=== PATIENT | male | born 1965 | race Caucasian/White ===

== ENCOUNTER 2019-11-30 20:49 | Emergency (ER) | payer SELFPAY ==
[2019-11-30] MEDS ORDERED: Diphtheria,Pertussis(Acell),Tetanus Vaccine 0.5 ML SDV IM ONE (21:05)
[2019-11-30] MEDS ORDERED: Lidocaine 1% 30 ML SDV INJECT ONE (21:05)
[2019-11-30] MEDS ORDERED: Bacitracin Oint 1 GM U/D Packet TOP ONE (21:05)
--- NOTE | 2019-11-30 21:06 | EDM.PDOC ---
ED HPI GENERAL MEDICAL PROBLEM - General Chief Complaint: Laceration Stated Complaint: CUT ON RIGHT ARM Time Seen by Provider: 11/30/19 21:05 Source of Information: Reports: Patient, RN, RN Notes Reviewed History Limitations: Reports: No Limitations - History of Present Illness INITIAL COMMENTS - FREE TEXT/NARRATIVE: patient to ER with complaint of laceration to the right wrist. patient reports drinking alcohol today, and being intoxicated. Patient states he walked outside to have a cigarette and lost his balance, falling through a window, cutting his right wrist. Patient states his sister brought him here. Patient is unsure of when his last tetanus vaccination was. Onset: Today, Sudden Right Wrist Pain Score (Numeric/FACES): 1 - Related Data Allergies Allergy/AdvReac Type Severity Reaction Status Date / Time No Known Allergies Allergy Verified 11/30/19 21:43 Home Meds: Home Meds Aspirin [Halfprin] 81 mg PO DAILY 09/23/16 [History] Lisinopril [Zestril] 20 mg PO DAILY 09/23/16 [History] Simvastatin [Zocor] 20 mg PO DAILY 09/23/16 [History] Sertraline HCl [Zoloft] 50 mg PO DAILY 05/09/19 [History] Past Medical History HEENT History: Reports: None Cardiovascular History: Reports: High Cholesterol, Hypertension, Other (See Below) Other Cardiovascular History: HYPERCHOLESTERMIA; DYSLIPIDEMIA Respiratory History: Reports: None Gastrointestinal History: Reports: Chronic Diarrhea, Hemorrhoids, Other (See Below) Other Gastrointestinal History: HEMATOCHEZIA Genitourinary History: Reports: Acute Renal Failure Musculoskeletal History: Reports: Gout Neurological History: Reports: Other (See Below) Other Neuro History: RADIAL NERVE PALSY Psychiatric History: Reports: Addiction, Mood Swings Other Psychiatric History: ALCOHOL HABITUATION. NICOTINE DEPENDENCE Endocrine/Metabolic History: Reports: Obesity/BMI 30+ Hematologic History: Reports: Anemia Immunologic History: Reports: None Oncologic (Cancer) History: Reports: None Dermatologic History: Reports: None - Infectious Disease History Infectious Disease History: Reports: Chicken Pox - Past Surgical History Head Surgeries/Procedures: Reports: None HEENT Surgical History: Reports: None Musculoskeletal Surgical History: Reports: None Social & Family History - Family History HEENT: Reports: None Cardiac: Reports: Stent Respiratory: Reports: None GI: Reports: None : Reports: None OBGYN: Reports: None Musculoskeletal: Reports: Gout Neurological: Reports: CVA Psychiatric: Reports: None Endocrine/Metabolic: Reports: Diabetes, type II Hematologic: Reports: None Immunologic: Reports: None Dermatologic: Reports: None Oncologic: Reports: None - Caffeine Use Caffeine Use: Reports: Soda ED ROS GENERAL - Review of Systems Review Of Systems: Comprehensive ROS is negative, except as noted in HPI. ED EXAM, SKIN/RASH Exam: See Below Exam Limited By: Intoxication General Appearance: Alert, WD/WN, No Apparent Distress Eye Exam: Bilateral Eye: EOMI, Normal Inspection Ears: Normal External Exam, Hearing Grossly Normal Nose: Nasal Deformity Throat/Mouth: Normal Inspection, Normal Voice, No Airway Compromise Head: Atraumatic, Normocephalic Neck: Normal Inspection, Supple, Non-Tender, Full Range of Motion Respiratory/Chest: No Respiratory Distress, Lungs Clear, Normal Breath Sounds, No Accessory Muscle Use, Chest Non-Tender Cardiovascular: Normal Peripheral Pulses, Regular Rate, Rhythm, No Edema, No Gallop, No JVD, No Murmur, No Rub Peripheral Pulses: 2+: Radial (L), Radial (R) GI/Abdominal: Normal Bowel Sounds, Soft, Non-Tender (Male) Exam: Deferred Rectal (Males) Exam: Deferred Back Exam: Normal Inspection, Full Range of Motion, NT Extremities: Normal Range of Motion, Arm Pain (Right wrist) Neurological: Alert, Oriented, Slow to Respond Psychiatric: Normal Affect, Normal Mood Skin: Warm, Dry, Other (2 lacerations to the right ventral distal wrist, one 4.5 cm, another 4.0 cm) Location, Skin: Upper Extremity, Right Characteristics: Linear Lymphatic: No Adenopathy ED SKIN PROCEDURES - Laceration/Wound Repair Right Distal Ventral Wrist Appearance: Subcutaneous Distal NVT: Neuro & Vascular Intact Anesthetic Type: Local Local Anesthesia - Lidocaine (Xylocaine): 1% Plain Local Anesthetic Volume: Other (10) Skin Prep: Chlorhexidine (Hibiciens) Exploration/Debridement/Repair: Wound Explored, In a Bloodless Field, Explored to Base, No Foreign Material Found Closed with: Sutures Lac/Wound length In cm: 4.5 Suture Size: 4-0 # of Sutures: 5 Suture Type: Nylon, Interrupted Drain Placement: No Sterile Dressing Applied: Nurse Tetanus Status Addressed: Yes Complications: No Right Wrist Appearance: Subcutaneous Anesthetic Type: Local Local Anesthesia - Lidocaine (Xylocaine): 1% Plain Local Anesthetic Volume: 5cc Skin Prep: Chlorhexidine (Hibiciens) Exploration/Debridement/Repair: Wound Explored, In a Bloodless Field, Explored to Base, No Foreign Material Found Closed with: Sutures Lac/Wound length In cm: 4.0 Suture Size: 4-0 # of Sutures: 5 Suture Type: Nylon, Interrupted Drain Placement: No Sterile Dressing Applied: Nurse Tetanus Status Addressed: Yes Complications: No Course - Vital Signs Last Recorded V/S: Last Vital Signs Temp 97.1 F 11/30/19 20:55 Pulse 87 11/30/19 20:55 Resp 19 11/30/19 20:55 BP 156/95 H 11/30/19 20:55 Pulse Ox 99 11/30/19 20:55 - Orders/Labs/Meds Orders: Active Orders 24 hr Category Date Time Status Vaccines to be Administered [RC] PER UNIT ROUTINE Care 11/30/19 21:05 Active Meds: Medications Discontinued Medications Generic Name Dose Route Start Last Admin Trade Name Zenobia PRN Reason Stop Dose Admin Bacitracin 1 dose 11/30/19 21:05 11/30/19 21:42 Bacitracin Oint 1 Gm TOP 11/30/19 21:06 1 dose ONETIME ONE Administration Diphtheria/Tetanus/Acell Pertussis 0.5 ml 11/30/19 21:05 11/30/19 21:14 Adacel IM 11/30/19 21:06 0.5 ml .ONCE ONE Administration Lidocaine HCl 30 ml 11/30/19 21:05 11/30/19 21:16 Xylocaine-Mpf 1% INJECT 11/30/19 21:06 30 ml ONETIME ONE Administration Departure - Departure Time of Disposition: 21:44 Disposition: Home, Self-Care 01 Condition: Fair Clinical Impression: Intoxication, Laceration - Discharge Information *PRESCRIPTION DRUG MONITORING PROGRAM REVIEWED*: No *COPY OF PRESCRIPTION DRUG MONITORING REPORT IN PATIENT MELO: No Instructions: Laceration Care, Adult, [id number], Stitches, Fenton, or Adhesive Wound Closure, [id number] Referrals: PCP,Unobtain [Primary Care Provider] - Forms: ED Department Discharge Additional Instructions: Follow up with your primary care facility for suture removal in 7-10 days Keep clean and dry You may shower, dab dry with towel Do not submerge in water for long period of time Keep covered with dry bandage to keep clean No need to use ointment after tonight Sepsis Event Note - Focused Exam Vital Signs: Vital Signs Temp Pulse Resp BP Pulse Ox 11/30/19 20:55 97.1 F 87 19 156/95 H 99 Date Exam was Performed: 11/30/19 Time Exam was Performed: 22:01 - My Orders Last 24 Hours: My Active Orders 11/30/19 21:05 Vaccines to be Administered [RC] PER UNIT ROUTINE - Assessment/Plan Last 24 Hours: My Active Orders 11/30/19 21:05 Vaccines to be Administered [RC] PER UNIT ROUTINE
[2019-11-30 21:29] VITALS: BP 156/95; PULSE 87
== END 2019-11-30 21:58 | disposition home or self-care (01) ==
LOC: DL.ED 20:49
DX: S61.511A Laceration without foreign body of right wrist, initial encounter (principal); F10.129 Alcohol abuse with intoxication, unspecified; Z23 Encounter for immunization; I10 Essential (primary) hypertension; E78.00 Pure hypercholesterolemia, unspecified; E66.9 Obesity, unspecified; Z68.29 Body mass index [BMI] 29.0-29.9, adult; Z79.82 Long term (current) use of aspirin; Z79.899 Other long term (current) drug therapy; F17.210 Nicotine dependence, cigarettes, uncomplicated; W19.XXXA Unspecified fall, initial encounter; W26.8XXA Contact with other sharp object(s), not elsewhere classified, initial encounter
CPT/HCPCS: 12004; 90471; 90715; 99283; J2001; 99282

== ENCOUNTER 2021-06-14 23:18 | Emergency (ER) | payer MEDICAID, OTHER ==
[2021-06-14 23:41] VITALS: BP 179/109; PULSE 92
[2021-06-14] MEDS ORDERED: Aspirin 81 MG Tab.Chew PO ONE (23:52)
--- NOTE | 2021-06-14 23:52 | EDM.PDOC ---
ED HPI GENERAL MEDICAL PROBLEM - General Chief Complaint: Cardiovascular Problem Stated Complaint: CHEST PAIN AND LEFT SIDE OF THE BODY Time Seen by Provider: 06/14/21 23:40 Source of Information: Reports: Patient History Limitations: Reports: Intoxication - History of Present Illness INITIAL COMMENTS - FREE TEXT/NARRATIVE: ED ambulatory with c/o left side chest pain, uncertain onset, poor historian, intoxicated, reports drank enough today to kill an elephant, person with reports frequent intox, unsure if daily drinker or if withdrawal hx. fresh open area left upper chest reports cigarette burn fell asleep in bed smoking. Left Chest Pain Score (Numeric/FACES): 1 - Related Data Allergies Allergy/AdvReac Type Severity Reaction Status Date / Time No Known Allergies Allergy Verified 06/14/21 23:39 Home Meds: Home Meds Aspirin [Halfprin] 81 mg PO DAILY 09/23/16 [History] Simvastatin [Zocor] 20 mg PO DAILY 09/23/16 [History] lisinopriL [Zestril] 20 mg PO DAILY 09/23/16 [History] Sertraline HCl [Zoloft] 50 mg PO DAILY 05/09/19 [History] Past Medical History HEENT History: Reports: None Cardiovascular History: Reports: High Cholesterol, Hypertension, Other (See Below) Other Cardiovascular History: HYPERCHOLESTERMIA; DYSLIPIDEMIA Respiratory History: Reports: None Gastrointestinal History: Reports: Chronic Diarrhea, Hemorrhoids, Other (See Below) Other Gastrointestinal History: HEMATOCHEZIA Genitourinary History: Reports: Acute Renal Failure Musculoskeletal History: Reports: Gout Neurological History: Reports: Other (See Below) Other Neuro History: RADIAL NERVE PALSY Psychiatric History: Reports: Addiction, Mood Swings Other Psychiatric History: ALCOHOL HABITUATION. NICOTINE DEPENDENCE Endocrine/Metabolic History: Reports: Obesity/BMI 30+ Hematologic History: Reports: Anemia Immunologic History: Reports: None Oncologic (Cancer) History: Reports: None Dermatologic History: Reports: None - Infectious Disease History Infectious Disease History: Reports: Chicken Pox - Past Surgical History Head Surgeries/Procedures: Reports: None HEENT Surgical History: Reports: None Musculoskeletal Surgical History: Reports: None Social & Family History - Family History HEENT: Reports: None Cardiac: Reports: Stent Respiratory: Reports: None GI: Reports: None : Reports: None OBGYN: Reports: None Musculoskeletal: Reports: Gout Neurological: Reports: CVA Psychiatric: Reports: None Endocrine/Metabolic: Reports: Diabetes, type II Hematologic: Reports: None Immunologic: Reports: None Dermatologic: Reports: None Oncologic: Reports: None - Tobacco Use Tobacco Use Status *Q: Current Every Day Tobacco User Years of Tobacco use: 35 Packs/Tins Daily: 1 - Caffeine Use Caffeine Use: Reports: Coffee - Recreational Drug Use Recreational Drug Use: No ED ROS GENERAL - Review of Systems Review Of Systems: Unable To Obtain Reason Not Obtained: intoxication ED EXAM, GENERAL - Physical Exam Exam: See Below Exam Limited By: Intoxication General Appearance: Alert, Mild Distress Eye Exam: Bilateral Eye: Conjunctival Injection, EOMI Ears: Normal External Exam Nose: Normal Inspection Throat/Mouth: Normal Inspection Head: Atraumatic, Normocephalic Neck: Normal Inspection Respiratory/Chest: No Respiratory Distress, Wheezing (coarse throughout improves with cough) Cardiovascular: Normal Peripheral Pulses, Regular Rate, Rhythm GI/Abdominal: Normal Bowel Sounds, Soft Neurological: Alert Psychiatric: Other (beligerent argumentative) Skin Exam: Warm, Dry, Intact #1 Interpretation EKG Date: 06/14/21 Time: 23:30 Rhythm: NSR Rate (Beats/Min): 91 [place]: Normal P-Wave: Present QRS: Normal ST-T: Normal Comparison: NA - No Prior EKG Course - Vital Signs Last Recorded V/S: Last Vital Signs Temp 98.9 F 06/14/21 23:40 Pulse 92 06/14/21 23:40 Resp 16 06/14/21 23:40 BP 179/109 H 06/14/21 23:40 Pulse Ox 97 06/14/21 23:40 - Orders/Labs/Meds Labs: Laboratory Tests 06/14/21 06/14/21 06/14/21 Range/Units 23:31 23:31 23:31 WBC 7.3 (5.0-10.0) 10^3/uL RBC 4.81 (4.6-6.2) 10^6/uL Hgb 16.3 D (14.0-18.0) g/dL Hct 47.5 (40.0-54.0) % MCV 98.8 D (80-100) fL MCH 33.9 (27.0-34.0) pg MCHC 34.3 (33.0-35.0) g/dL Plt Count 197 (150-450) 10^3/uL Neut % (Auto) 41.3 L (42.2-75.2) % Lymph % (Auto) 38.8 (20.5-50.1) % Iron % (Auto) 16.9 H (2-8) % Eos % (Auto) 2.6 (1.0-3.0) % Baso % (Auto) 0.4 (0.0-1.0) % D-Dimer, Quantitative 489 H (0-400) ng/mL Sodium 141 (136-145) mmol/L Potassium 3.8 (3.5-5.1) mmol/L Chloride 105 (98-107) mmol/L Carbon Dioxide 23 (21-32) mmol/L Anion Gap 16.8 H (7-13) mEq/L BUN 11 (7-18) mg/dL Creatinine 1.03 (0.70-1.30) mg/dL Est Cr Clr Drug Dosing 86.31 mL/min Estimated GFR (MDRD) > 60 BUN/Creatinine Ratio 10.7 (No establ ref range) Glucose 127 H (70-99) mg/dL Calcium 8.5 (8.5-10.1) mg/dL Total Bilirubin 0.2 (0.2-1.0) mg/dL AST 27 (15-37) U/L ALT 37 (16-63) U/L Alkaline Phosphatase 71 (46-116) U/L Troponin I High Sens 37 (<=76) pg/mL Total Protein 7.9 (6.4-8.2) g/dL Albumin 3.7 (3.4-5.0) g/dL Globulin 4.2 Albumin/Globulin Ratio 0.9 Amylase 139 H (25-115) U/L Lipase 354 (73-393) U/L Ethyl Alcohol 359 (0) mg/dL SARS-CoV-2 RNA (NENA) (NEGATIVE) 06/14/21 06/15/21 Range/Units 23:39 01:46 WBC (5.0-10.0) 10^3/uL RBC (4.6-6.2) 10^6/uL Hgb (14.0-18.0) g/dL Hct (40.0-54.0) % MCV (80-100) fL MCH (27.0-34.0) pg MCHC (33.0-35.0) g/dL Plt Count (150-450) 10^3/uL Neut % (Auto) (42.2-75.2) % Lymph % (Auto) (20.5-50.1) % Iron % (Auto) (2-8) % Eos % (Auto) (1.0-3.0) % Baso % (Auto) (0.0-1.0) % D-Dimer, Quantitative (0-400) ng/mL Sodium (136-145) mmol/L Potassium (3.5-5.1) mmol/L Chloride (98-107) mmol/L Carbon Dioxide (21-32) mmol/L Anion Gap (7-13) mEq/L BUN (7-18) mg/dL Creatinine (0.70-1.30) mg/dL Est Cr Clr Drug Dosing mL/min Estimated GFR (MDRD) BUN/Creatinine Ratio (No establ ref range) Glucose (70-99) mg/dL Calcium (8.5-10.1) mg/dL Total Bilirubin (0.2-1.0) mg/dL AST (15-37) U/L ALT (16-63) U/L Alkaline Phosphatase (46-116) U/L Troponin I High Sens 33 (<=76) pg/mL Total Protein (6.4-8.2) g/dL Albumin (3.4-5.0) g/dL Globulin Albumin/Globulin Ratio Amylase (25-115) U/L Lipase (73-393) U/L Ethyl Alcohol 298 (0) mg/dL SARS-CoV-2 RNA (NENA) Negative (NEGATIVE) Meds: Medications Discontinued Medications Generic Name Dose Route Start Last Admin Trade Name Ralfq PRN Reason Stop Dose Admin Aspirin 324 mg 06/14/21 23:52 06/15/21 00:00 Aspirin 81 Mg Tab.Chew PO 06/14/21 23:53 324 mg ONETIME ONE Administration Labetalol HCl 10 mg 06/14/21 23:59 06/15/21 00:08 Labetalol 20 Mg/4 Ml Syringe IVPUSH 06/15/21 00:00 10 mg ONETIME ONE Administration Labetalol HCl 10 mg 06/15/21 00:31 06/15/21 00:41 Labetalol 20 Mg/4 Ml Syringe IVPUSH 06/15/21 00:32 10 mg ONETIME ONE Administration - Re-Assessments/Exams Free Text/Narrative Re-Assessment/Exam: 06/15/21 05:53 BP improved with labetalol. Pain apears associated with movement left lateral chest. Departure - Departure Time of Disposition: 02:32 Disposition: Home, Self-Care 01 Condition: Good Clinical Impression: Alcohol intoxication Qualifiers: Complication of substance-induced condition: uncomplicated Qualified Code(s): F10.920 - Alcohol use, unspecified with intoxication, uncomplicated Hypertension Qualifiers: Hypertension type: unspecified Qualified Code(s): I10 - Essential (primary) hypertension Instructions: Alcohol Intoxication, [id number], Hypertension, Adult, [id number] Referrals: Bandar Ariza NP [Primary Care Provider] - Forms: ED Department Discharge Additional Instructions: abstain from alcohol consider counseling or addiction treatment follow up clinic this week to recheck blood pressure Sepsis Event Note (ED) - Evaluation Sepsis Screening Result: No Definite Risk - Focused Exam Vital Signs: Vital Signs Temp Pulse Resp BP Pulse Ox 06/14/21 23:40 98.9 F 92 16 179/109 H 97
[2021-06-14 23:59] LABS: ANION GAP 16.8 mEq/L (7-13); CHLORIDE,CL 105 mmol/L (98-107); SODIUM,NA 141 mmol/L (136-145)
[2021-06-14] MEDS ORDERED: Labetalol 20 MG/4 ML Syringe IVPUSH ONE (23:59)
[2021-06-15] MEDS ORDERED: Labetalol 20 MG/4 ML Syringe IVPUSH ONE (00:31)
--- NOTE | 2021-06-15 00:56 | CR ---
PROCEDURE INFORMATION: Exam: XR Chest Exam date and time: 06/15/2021 12:03 AM Age: 56 years old Clinical indication: Other: Chest pain TECHNIQUE: Imaging protocol: XR of the chest. Views: 1 view. COMPARISON: CR Chest 1V Frontal 05/09/2019 9:05 PM FINDINGS: Lungs: Unremarkable. No consolidation. Pleural spaces: Unremarkable. No pleural effusion. No pneumothorax. Heart/Mediastinum: Unremarkable. No cardiomegaly. Bones/joints: Unremarkable. IMPRESSION: No acute findings.
== END 2021-06-15 02:50 | disposition home or self-care (01) ==
LOC: DL.ED 23:18
DX: F10.129 Alcohol abuse with intoxication, unspecified (principal); I10 Essential (primary) hypertension; E78.00 Pure hypercholesterolemia, unspecified; E66.9 Obesity, unspecified; Z68.27 Body mass index [BMI] 27.0-27.9, adult; Z79.82 Long term (current) use of aspirin; Z79.899 Other long term (current) drug therapy; Z72.0 Tobacco use; Z20.822 Contact with and (suspected) exposure to COVID-19; Y90.8 Blood alcohol level of 240 mg/100 ml or more
CPT/HCPCS: 36415; 71045; 80053; 80307; 82150; 83690; 84484; 85025; 85379; 87635; 93005; 96374; 96376; 99285; A9270; J3490; U0002

== ENCOUNTER 2024-07-06 13:07 | Emergency (ER) | payer OTHER ==
[2024-07-06] MEDS: Acetaminophen/HYDROcodone 325-10 MG Tab PO ONE (13:45)
[2024-07-06] MEDS: predniSONE 20 MG Tab PO ONE (13:46)
[2024-07-06 13:54] LABS: BASOPHILS PERCENT AUTO 0.3 % (0.0-1.0); EOSINOPHILS PERCENT AUTO 1.9 % (1.0-3.0); HEMATOCRIT 46.1 % (40.0-54.0); HEMOGLOBIN 15.5 g/dL (14.0-18.0); LYMPHOCYTES PERCENT AUTO 16.5 % (20.5-50.1); MEAN CORPUSCULAR HEMOGLOBIN 34.1 pg (27.0-34.0); MEAN CORPUSCULAR HGB CONC 33.6 g/dL (33.0-35.0); MEAN CORPUSCULAR VOLUME 101.3 fL (80-100); MONOCYTES PERCENT AUTO 20.1 % (2-8); NEUTROPHILS PERCENT AUTO 61.2 % (42.2-75.2); PLATELET COUNT,PLT 204 10^3/uL (150-450); RED BLOOD CELL COUNT 4.55 10^6/uL (4.6-6.2)
[2024-07-06 14:04] VITALS: BP 180/107; PULSE 81
[2024-07-06 14:10] LABS: ANION GAP 15.1 mEq/L (7-13); C-REACTIVE PROTEIN 5.64 ng/dL (<=0.50); CALCIUM 9.3 mg/dL (8.5-10.1); CREATININE 1.17 mg/dL (0.70-1.30); EST CRCL DRUG DOSING (CG) 73.3 mL/min; POTASSIUM,K 4.1 mmol/L (3.5-5.1); URIC ACID 6.1 mg/dL (3.5-7.2)
== END 2024-07-06 14:30 | disposition home or self-care (01) ==
LOC: DL.ED 13:07
DX: M10.9 Gout, unspecified (principal); E78.00 Pure hypercholesterolemia, unspecified; I10 Essential (primary) hypertension; E66.9 Obesity, unspecified; Z68.26 Body mass index [BMI] 26.0-26.9, adult; F17.210 Nicotine dependence, cigarettes, uncomplicated; Z79.82 Long term (current) use of aspirin; Z79.899 Other long term (current) drug therapy
CPT/HCPCS: 36415; 80048; 84550; 85025; 85651; 86140; 99283; A9270; J7512